=== PATIENT | male | born 1980 | race Two or more races ===

== ENCOUNTER 2025-01-28 14:20 | Emergency (ER) | payer MEDICAID, SELFPAY ==
[2025-01-28 14:25] VITALS: PULSE 58; RESP 24; O2SAT 98
[2025-01-28 14:54] VITALS: BP 135/90; PULSE 106; RESP 22; TEMP 36.6; O2SAT 96; BMI 30.1
--- NOTE | 2025-01-28 15:10 | XR_ITS ---
Examination: PA lateral chest 2 views TECHNIQUE: Upright PA and lateral chest 2 views Exam date and time: January 28, 2025, 1623 hours INDICATIONS: Shortness of breath one month FINDINGS: Normal heart size On the lateral view minor probable scarring in the right middle lobe Mild thoracic spondylosis IMPRESSION: On the lateral view probable minor scarring in the right middle lobe, recommend one-month follow-up PA lateral chest
--- NOTE | 2025-01-28 15:11 | EDNOTE_ITS ---
ED SOB =RME/HPI General Chief Complaint: Shortness of Breath/Dyspnea Stated Complaint: SOB, ALLERGIES Time Seen by Provider: 01/28/25 14:53 Arrival date/time: 01/28/25 14:20 This is a 44-year-old male that recently moved to [place]. Patient has a complaint of runny nose congestion cough. Patient states he is very allergic to pollen patient states that he was walking through the [place] and his nose got stuffed up. Patient states he is nose is very clogged and he feels like he cannot breathe through his nose. Related Data Previous Rx's ?Medication ?Instructions ?Recorded loratadine 10 mg tablet 10 mg PO QDAY PRN allergy sy mptoms 01/28/25 #14 tabs Allergies Allergy/AdvReac Type Severity Reaction Status Date / Time No Known Drug Allergies Allergy Verified 01/28/25 16:03 Course Orders Category Date Time Status Bedside COVID-19 Antigen Test NOW Care 01/28/25 15:05 Active Bedside Influenza A&B Antigen Test NOW Care 01/28/25 15:05 Completed XR chest 2V Stat Exams 01/28/25 15:10 Completed Acetaminophen Tab [Tylenol ES Tab] Med 01/28/25 17:24 Once 1,000 mg PO X1 ONE Dexamethasone Inj [Decadron Inj] Med 01/28/25 17:24 Once 10 mg PO X1 ONE DiphenhydrAMINE [Benadryl] Med 01/28/25 15:10 Discontinued 50 mg PO X1 ONE Ibuprofen Tab [Motrin Tab] Med 01/28/25 15:10 Discontinued 800 mg PO X1 ONE Vital Signs Vital signs: Vital Signs Pulse Rate 58 L 01/28/25 14:25 Respiratory Rate 24 H 01/28/25 14:25 Pulse Oximetry (%) 98 01/28/25 14:25 Oxygen Delivery Method Room Air 01/28/25 14:25 Shortness of Breath / Dyspnea MDM Narrative MDM Narrative:: chest x ray: FINDINGS: Normal heart size On the lateral view minor probable scarring in the right middle lobe Mild thoracic spondylosis IMPRESSION: On the lateral view probable minor scarring in the right middle lobe, recommend one-month follow-up PA lateral chest COVID and flu negative. Patient given Benadryl and ibuprofen. Patient will be given a dose of Tylenol and Decadron. Patient feels better with medication. It is likely the patient has a URI with seasonal allergies. Patient told to follow-up with primary provider 1 to 2 days. Come back to the emergency room symptoms change or worsen Medications / Prescriptions Medication administrations:: Medication Administration History Discontinued Medications Diphenhydramine HCl (Diphenhydramine 25 Mg Capsule) 50 mg PO X1 ONE Stop: 01/28/25 15:11 Last Admin: 01/28/25 16:43 Dose: 50 mg Documented By: MANGO Ibuprofen (Ibuprofen Tab 400 Mg Tablet) 800 mg PO X1 ONE Stop: 01/28/25 15:11 Last Admin: 01/28/25 16:43 Dose: 800 mg Documented By: MANGO Discharge Plan Plan Patient Disposition: HOME (Self Care) Patient condition on transfer: Stable Prescriptions/Referrals Prescriptions/Med Rec: New loratadine 10 mg tablet 10 mg PO QDAY PRN (Reason: allergy symptoms) Qty: 14 0RF Referrals: No Primary/Family,Physician [Primary Care Provider] - In 1 week Problem List Clinical Impression: URI (upper respiratory infection), Acute seasonal allergic rhinitis Patient/Caregiver Discharge Instructions Discharge Activity: activity as tolerated Education Materials: ED Allergic Rhinitis Additional Instructions: Catie un honey con srinivasan medico de cabecera en las proximas 24-48 horas. Regrese a la karel de emergencias si hay evidencia de que los signos o sintomas empeoran. Consider flonase over the counter Print Language: Bangladeshi Stand Alone Forms: Olivia Award Info., Patient Portal Info Letter PA/MANAGER SHIPPING Supervising Physician PA/MANAGER SHIPPING Supervising Physician: [email or web address]
[2025-01-28] MEDS: DiphenhydrAMINE 25 MG CAPSULE 50 MG PO (16:43)
[2025-01-28] MEDS: IBUPROFEN TAB 400 MG TABLET 800 MG PO (16:43)
[2025-01-28] MEDS: DEXAMETHASONE SOD PHOS INJ 10 MG/ML VIAL PO (17:47)
[2025-01-28] MEDS: ACETAMINOPHEN 500 MG TABLET 1000 MG PO (17:47)
== END 2025-01-28 18:43 | disposition home or self-care (01) ==
PROVIDERS: Emergency Provider Emergency Medicine
DX: J06.9 Acute upper respiratory infection, unspecified (principal); J30.2 Other seasonal allergic rhinitis
CPT/HCPCS: 71046; 87400; 87811; 99283; J1100; A9270

== ENCOUNTER 2025-08-27 09:38 | Emergency (ER) | payer SELFPAY ==
[2025-08-27 09:38] VITALS: BMI 29.7
[2025-08-27 09:48] VITALS: BP 129/80; PULSE 81; RESP 18; TEMP 36.7; O2SAT 98
--- NOTE | 2025-08-27 10:12 | EDNOTE_ITS ---
ED Animal Bite RME/HPI General Chief Complaint: Animal Bite Stated Complaint: CAT BITE TO LEFT THUMB AND ARM Time Seen by Provider: 08/27/25 09:38 Arrival date/time: 08/27/25 09:38 This is a 44-year-old male that comes into the emergency room with complaints of cat bite to left thumb and left forearm. Patient states that happened about 5 days ago. Patient is concerned that I can likely be infected. Patient does not know the last time he had a tetanus shot. Related Data Previous Rx's ?Medication ?Instructions ?Recorded loratadine 10 mg tablet 10 mg PO QDAY PRN allergy sy mptoms 01/28/25 #14 tabs doxycycline hyclate 100 mg tablet 100 mg PO BID #14 ta bs 08/27/25 Allergies Allergy/AdvReac Type Severity Reaction Status Date / Time No Known Drug Allergies Allergy Verified 08/27/25 09:41 Review of Systems Review of Systems Systems Reviewed: All systems reviewed, normal except as documented Past Medical History Past Medical History Comments PMH COMMENT: seasonal allergies ED Exam Narrative Physical exam: VITAL SIGNS: Reviewed. GENERAL APPEARANCE: Alert and interactive, follows commands, no acute distress HEAD AND FACE: Non-traumatic. ENT: PERRL, conjuctiva pink and clear, eyelid no trauma, Mucous membrane moist. NECK: Supple, nontender, no nuchal rigidity. CHEST: No tenderness, no crepitus, no paradoxical movement, no retractions. LUNGS: breathing even and unlabored HEART: Regular rate, cap refill less than 2 seconds ABDOMEN: Soft, nondistended, no guarding, nontender NEUROLOGICAL: Gross motor function intact sensory function intact, Appropriate for age. MUSCULOSKELETAL: low back nontender, full range of motion EXTREMITIES: No redness no swelling no skin breakdown on bilateral foot and leg. Distal neurovascular status intact bilateral foot SKIN: Color pink, dry, small puncture wound to his left thumb and small superficial laceration well-approximated to the left forearm approximately 1 cm. No need for suturing.. Course Orders Category Date Time Status Doxycycline [Vibramycin] Med 08/27/25 10:12 Discontinued 100 mg PO X1 ONE TET,DIP/PERT AC (Adult)-Tdap [Boostrix Adult (Tdap) Med 08/27/25 10:12 Discontinued Vacc] 0.5 ml IMI .ONCE ONE Vital Signs Vital signs: Vital Signs Temperature 98.1 F 08/27/25 09:48 Pulse Rate 81 08/27/25 09:48 Respiratory Rate 18 08/27/25 09:48 Blood Pressure 129/80 08/27/25 09:48 Pulse Oximetry (%) 98 08/27/25 09:48 Oxygen Delivery Method Room Air 08/27/25 09:48 Animal Bite MDM Narrative MDM Narrative:: I spoke to patient at length. Wound actually does not appear to be infected however patient is concerned if it get being infected. Will treat patient with antibiotic and give patient a tetanus shot. Patient told to follow-up with primary provider in 1 to 2 days. [place] to emergency room symptoms change or worsen Dragon dictation: Although this document has been carefully reviewed, there may still be some phonetic and other typographical errors. These errors are purely grammatical due to imperfections in the software program and should not be construed in any way to compromise the substance of the patient's medical care during this visit. Medications / Prescriptions Medication administrations:: Medication Administration History Discontinued Medications Diphtheria/Tetanus/Acell Pertussis (Diphth,Pertuss(Acell),Tet Vac 0.5 Ml Syr- Adult) 0.5 ml IMi .ONCE ONE Stop: 08/27/25 10:13 Doxycycline Hyclate (Doxycycline 100 Mg Tablet) 100 mg PO X1 ONE Stop: 08/27/25 10:13 Discharge Plan Plan Patient Disposition: HOME (Self Care) Patient condition on transfer: Stable Prescriptions/Referrals Prescriptions/Med Rec: New doxycycline hyclate 100 mg tablet 100 mg PO BID Qty: 14 0RF No Action loratadine 10 mg tablet 10 mg PO QDAY PRN (Reason: allergy symptoms) Qty: 14 0RF Problem List Clinical Impression: Bite by animal Patient/Caregiver Discharge Instructions Discharge Activity: activity as tolerated Education Materials: ED Cat Bite Additional Instructions: Catie un honey con srinivasan medico de cabecera en las proximas 24-48 horas. Regrese a la karel de emergencias si hay evidencia de que los signos o sintomas empeoran. Print Language: Estonian Stand Alone Forms: Olivia Award Info., Patient Portal Info Letter PA/INTERNET MARKETING MANAGER Supervising Physician PA/INTERNET MARKETING MANAGER Supervising Physician: [email or web address]
[2025-08-27] MEDS: DOXYCYCLINE 100 MG TABLET PO (10:29)
[2025-08-27] MEDS: DIPHTH,PERTUSS(ACELL),TET VAC 0.5 ML SYR- ADULT IMi (10:30)
== END 2025-08-27 10:37 | disposition home or self-care (01) ==
LOC: SERX 10:15
PROVIDERS: Emergency Provider Emergency Medicine
DX: S61.032A Puncture wound without foreign body of left thumb without damage to nail, initial encounter (principal); W55.01XA Bitten by cat, initial encounter; Z23 Encounter for immunization
CPT/HCPCS: 90471; 90715; 99281; A9270